=== PATIENT | female | born 1975 | race Two or more races ===

== ENCOUNTER 2019-10-16 16:55 | Emergency (ER) | payer OTHER ==
[~2019-10-16] VITALS: Ht 149.9 cm; Wt 81.7 kg
[~2019-10-16 16:55] MED LIST: ALBU90OI INH; ALBU90OI6 INH; ALTAVERA1 EACH PO; AZIT250 PO; Albuterol2.5 MG/0.5 INH; CODGUAEL PO; Chlor-Trimeton4 MG PO; ERYT.5TO BOTHEYES; FLUSAL1005 INH; IPRAIS NEB; PRED10 PO; PRED20 PO; Prednisone20 MG PO; Pseudoephedrine30 MG PO; Ventolin5 MG/1 ML INH; Zithromax250 MG PO
[2019-10-16 18:16] LABS: BASOPHILS ABSOLUTE AUTO 0.04 K/mm3 (0.00-0.23); BASOPHILS PERCENT AUTO 0 % (0-2); EOSINOPHILS ABSOLUTE AUTO 0.08 K/mm3 (0.00-0.68); EOSINOPHILS PERCENT AUTO 1 % (0-6); Hematocrit 41.4 % (33.0-51.0); Hemoglobin 13.6 g/dL (11.5-16.0); IMMATURE GRAN ABSOLUTE AUTO 0.04 K/mm3 (0.00-0.10); IMMATURE GRAN PERCENT AUTO 0 % (0-1); LYMPHOCYTES ABSOLUTE AUTO 2.29 K/mm3 (0.84-5.20); LYMPHOCYTES PERCENT AUTO 19 % (21-46); MONOCYTES ABSOLUTE AUTO 0.62 K/mm3 (0.16-1.47); MONOCYTES PERCENT AUTO 5 % (4-13); Mean Corpuscular HGB 29.4 pg (26.0-34.0); Mean Corpuscular HGB Conc 32.9 g/dL (31.5-36.5); Mean Corpuscular Volume 90 fL (80-100); Mean Platelet Volume 9.6 fL (9.1-12.4); NEUTROPHILS ABSOLUTE AUTO 8.74 K/mm3 (1.96-9.15); NEUTROPHILS PERCENT AUTO 74 % (41-73); Platelet Count 366 K/mm3 (150-400); RDW Coefficient Variation 12.4 % (11.7-14.2); RDW Standard Deviation 40.8 fL (35.1-46.3); Red Blood Cell Count 4.62 M/mm3 (3.80-5.20); White Blood Cell Count 11.81 K/mm3 (4.00-11.30)
[2019-10-16 18:41] LABS: Alanine Aminotransfer (ALT/SGP 26 U/L (12-78); Albumin, Blood 3.5 g/dL (3.4-5.0); Albumin/Globulin Ratio 0.8 (0.8-1.8); Alk Phos 90 U/L (50-136); Anion Gap 7 mmol/L (6-16); Aspartate Aminotrans (AST/SGOT 13 U/L (12-37); Bilirubin, Total 0.3 mg/dL (0.1-1.0); Blood Urea Nitrogen 11 mg/dL (8-24); Bun/Creatinine Ratio 13.9 (12.0-20.0); CO2, Blood 24 mmol/L (21-32); Calcium, Blood 8.7 mg/dL (8.5-10.1); Chloride, Blood 105 mmol/L (98-108); Creatinine, Blood 0.79 mg/dL (0.40-1.00); Globulin, Blood 4.3 g/dL (2.2-4.0); Glomerular Filtration Rate >60 (60-); Glucose, Blood 112 mg/dL (70-99); Potassium, Blood 3.9 mmol/L (3.5-5.5); Sodium, Blood 136 mmol/L (136-145); Total Protein, Blood 7.8 g/dL (6.4-8.2); Troponin I <0.015 ng/mL (0.000-0.040)
[2019-10-16] MEDS ORDERED: Flonase 0.05% N16 GM (22:20)
== END 2019-10-16 22:58 | disposition home or self-care (01) ==
LOC: ER 16:55
PROVIDERS: Physician Assistant
DX: J01.90 Acute sinusitis, unspecified (principal); J45.909 Unspecified asthma, uncomplicated
CPT/HCPCS: 36415; 71046; 80053; 84484; 85025; 93005; 93010; 99284-25

== ENCOUNTER 2019-10-20 16:44 | Emergency (ER) | payer OTHER ==
[~2019-10-20] VITALS: Ht 149.9 cm; Wt 83.9 kg
[~2019-10-20 16:44] MED LIST changes: +Flonase 0.05% N16 GM
[2019-10-20] MEDS ORDERED: Augmentin 875-1 EACH PO (19:13)
[2019-10-20] MEDS ORDERED: Sudogest60 MG PO (19:13)
== END 2019-10-20 19:20 | disposition home or self-care (01) ==
LOC: ER 16:44
DX: J32.9 Chronic sinusitis, unspecified (principal); B96.89 Other specified bacterial agents as the cause of diseases classified elsewhere; J45.909 Unspecified asthma, uncomplicated; Z79.51 Long term (current) use of inhaled steroids
CPT/HCPCS: 99283

== ENCOUNTER 2022-02-06 20:08 | Emergency (ER) | payer OTHER ==
[~2022-02-06] VITALS: Ht 152.4 cm; Wt 136.1 kg
[~2022-02-06 20:08] MED LIST changes: +Augmentin 875-1 EACH PO; +Sudogest60 MG PO
[2022-02-06] MEDS ORDERED: AZIT250 PO (21:47)
[2022-02-06] MEDS ORDERED: PRED20 PO (21:47)
== END 2022-02-06 21:56 | disposition home or self-care (01) ==
LOC: ER 20:08
DX: J18.9 Pneumonia, unspecified organism (principal); J45.909 Unspecified asthma, uncomplicated; Z79.899 Other long term (current) drug therapy
CPT/HCPCS: 71045

== ENCOUNTER 2022-03-25 23:01 | Emergency (ER) | payer OTHER ==
[~2022-03-25] VITALS: Ht 152.4 cm; Wt 136.1 kg
[2022-03-26] MEDS ORDERED: ALBU90OI INH (00:47)
[2022-03-26] MEDS ORDERED: PRED20 PO (00:47)
== END 2022-03-26 00:53 | disposition home or self-care (01) ==
LOC: ER 23:01
DX: J45.901 Unspecified asthma with (acute) exacerbation (principal); Z79.899 Other long term (current) drug therapy; Z79.52 Long term (current) use of systemic steroids
CPT/HCPCS: 94640; 94664; 99283-25; J1100

== ENCOUNTER 2022-03-28 19:46 | Emergency (ER) | payer OTHER ==
[~2022-03-28] VITALS: Ht 149.9 cm; Wt 81.7 kg
[2022-03-28] MEDS ORDERED: FLONASE ALLERG9.9 ML (19:56)
== END 2022-03-28 19:57 | disposition home or self-care (01) ==
LOC: ER 19:46
DX: R09.81 Nasal congestion (principal); R09.82 Postnasal drip; J45.909 Unspecified asthma, uncomplicated; Z79.52 Long term (current) use of systemic steroids; Z79.899 Other long term (current) drug therapy
CPT/HCPCS: 99282